=== PATIENT | female | born 1995 | race Caucasian/White ===

== ENCOUNTER 2020-05-22 12:52 | Outpatient (CLI) | payer OTHER, SELFPAY ==
[2020-05-22 14:33] LABS: Free T4 Free Thyroxine 0.89 ng/mL (0.78-2.19)
== END 2020-05-22 12:53 | disposition home or self-care (01) ==
PROVIDERS: PCP Internal Medicine; Visit Provider Internal Medicine Endocrinology, Diabetes & Metabolism
DX: E03.9 Hypothyroidism, unspecified (principal)
CPT/HCPCS: 36415; 84439; 84443

== ENCOUNTER 2020-07-15 14:28 | Outpatient (CLI) | payer OTHER, SELFPAY ==
[2020-07-15 15:32] LABS: Basophils Percent Auto 0.3 % (0.2-1.2); Eosinophils Absolute Auto 0.1 K/mm3 (0-0.3); Eosinophils Percent Auto 1.6 % (0-4.4); Hematocrit 47.8 % (37.0-47.0); Hemoglobin 16.1 g/dL (12.0-15.0); Immature Granulocyte Absolute 0.02 K/mm3 (0.00-0.031); Immature Granulocyte Percent A 0.2 % (0-0.5); Lymphocytes Absolute Auto 2.71 K/mm3 (0.9-3.2); Mean Corpuscular HGB Conc 33.7 g/dl (32-36); Mean Corpuscular Hemoglobin 31.2 pg (26-34); Mean Corpuscular Volume 92.6 fl (80-100); Monocytes Absolute Auto 0.6 K/mm3 (0.1-0.6); Monocytes Percent Auto 6.4 % (2.6-8.5); Neutrophils Absolute Auto 5.6 K/mm3 (1.3-6.7); Neutrophils Percent Auto 61.5 % (45.5-73.1); Platelet Count Result 287 k/mm3 (150-375); Red Blood Count 5.16 M/mm3 (4.2-5.4); Red Cell Distribution Width 11.9 % (11.5-14.5)
[2020-07-15 15:44] LABS: Alanine Aminotransferase 32 U/L (4-35); Albumin Level 4.5 g/dL (3.5-5.1); Alkaline Phosphatase 76 U/L (38-126); Anion Gap 7 mmol/L (8-16); Aspartate Amino Transferase 30 U/L (14-36); Bilirubin,Total 0.5 mg/dL (0.2-1.3); Blood Urea Nitrogen 15 mg/dL (7-17); Calcium 9.5 mg/dL (8.4-10.2); Carbon Dioxide 30 mmol/L (22-30); Chloride 104 mmol/L (98-107); Cholesterol 190 mg/dL (0-200); Estimated Glomerular Filt Rate 54; Glucose 87 mg/dL (65-105); HDL Direct 48 mg/dL; Sodium 141 mmol/L (137-145); Triglycerides 215 mg/dL (<150)
[2020-07-15 15:55] LABS: LDL Cholesterol Direct 112 mg/dL
[2020-07-15 16:49] LABS: Hemoglobin A1C 4.9 % (<5.7)
[2020-07-15 17:28] LABS: Vitamin D 25 Hydroxy 38.6 ng/mL
== END 2020-07-15 14:29 | disposition home or self-care (01) ==
PROVIDERS: PCP Internal Medicine; Visit Provider Nurse Practitioner Obstetrics & Gynecology
DX: Z00.00 Encounter for general adult medical examination without abnormal findings (principal)
CPT/HCPCS: 36415; 80053; 80061; 82306; 82607; 83036; 85025

== ENCOUNTER → 2020-07-21 13:45 | Outpatient (CLI) | payer OTHER, SELFPAY ==
--- NOTE | ~2020-07-21 | US_ITS ---
EXAMINATION: US right upper quadrant EXAM DATE: 07/21/2020 14:01 INDICATION: Right upper quadrant pain. TECHNIQUE: Multiple grayscale and Doppler images of the abdomen right upper quadrant were obtained (b y a technologist who performed the scan) and subsequently reviewed. There is no prior study for sophie higginbotham. FINDINGS: The pancreatic head and body are normal in appearance. The pancreatic tail is not visualized. The l iver has normal echogenicity and contour. There are no focal liver lesions identified. There is no evidence of intrahepatic biliary duct dilation. Portal venous flow was seen in the hepatopedal, nor mal direction and has normal Doppler waveform. No right-sided hydronephrosis. Common bile duct measures 3 mm, which is normal. The gallbladder wall is normal in thickness, with ex pected amount of distention. No sonographic evidence of pericholecystic fluid. There is no cholelit hiases. Technologist performing exam reports patient did not demonstrate sonographic [place]'s sign. Please note that this sign is less reliable in patients who have received pain medication. IMPRESSION: 1. Unremarkable abdominal ultrasound exam. Reviewed, dictated and finalized at location B. NG ASSOCIATE
== END ==
PROVIDERS: PCP Physician Assistant Medical; Visit Provider Physician Assistant Medical
DX: R10.11 Right upper quadrant pain (principal)
CPT/HCPCS: 76705

== ENCOUNTER 2020-08-06 11:53 | Outpatient (CLI) | payer OTHER, SELFPAY ==
[2020-08-06 13:19] LABS: Beta HCG Quantitative < 2.39 mIU/ML
[2020-08-12 07:27] LABS: FSH 6.8 mIU/mL (***); LH 10.6 mIU/mL (***); Prolactin 6.9 ng/mL (***)
== END 2020-08-06 11:54 | disposition home or self-care (01) ==
LOC: ANHLAB 11:55
PROVIDERS: PCP Physician Assistant Medical; Visit Provider Nurse Practitioner Obstetrics & Gynecology
DX: N91.1 Secondary amenorrhea (principal)
CPT/HCPCS: 36415; 83001; 83002; 84146; 84702

== ENCOUNTER 2020-08-25 08:11 | Outpatient (CLI) | payer OTHER, SELFPAY ==
--- NOTE | ~2020-08-25 | NM_ITS ---
EXAMINATION: NM hepatobiliary w pharm DATE: 08/25/2020 10:56 INDICATION: Right upper quadrant abdominal pain COMPARISON: None. TECHNIQUE: 5.1 mCi Tc-99m mebrofenin (Choletec) was administered intravenously. Scintigraphic images of the abdomen were obtained for one hour. 1.7 mcg sincalide (Kinevac) was administered by slow intr avenous infusion, and imaging was continued for 30 minutes. Gallbladder ejection fraction was calcula kia by the technologist. FINDINGS: There is normal clearance of radiotracer from the blood pool. There is homogeneous tracer uptake by t he liver. Activity progresses to the gallbladder and bowel. The gallbladder ejection fraction (GBEF) is 90% (normal 10-90%, but most patient with gallbladder dysfunction have GBEF < 35% which does over lap with the normal range). IMPRESSION: 1. Normal hepatobiliary scan Reviewed, dictated and finalized at location A. [employer]
== END 2020-08-25 08:12 | disposition home or self-care (01) ==
PROVIDERS: PCP Physician Assistant Medical; Visit Provider Internal Medicine
DX: R10.11 Right upper quadrant pain (principal)
CPT/HCPCS: 78227; A9537; J2805

== ENCOUNTER 2021-01-04 14:36 | Outpatient (CLI) | payer OTHER, SELFPAY ==
--- NOTE | ~2021-01-04 | US_ITS ---
EXAMINATION: US pelvic complete w TV EXAM DATE: 01/04/2021 15:23 INDICATION: Amenorrhea. TECHNIQUE: Pelvic transabdominal and transvaginal sonogram was performed. There are multiple graysca le and Doppler images available for interpretation. There is no prior study for comparison. FINDINGS: Uterus measures 7.5 x 4.0 x 4.8 cm, is retroverted and morphologically normal. Endometria l stripe measures 9 mm, within normal limits. There is no free pelvic fluid. Right adnexa: The ovary measures 3.6 x 2.2 x 2.2 cm and is morphologically normal. Ovarian vascular f low confirmed. Left adnexa: The ovary measures 3.9 x 2.2 x 2.6 cm and is morphologically normal. Ovarian vascular fl ow confirmed. IMPRESSION: 1. Unremarkable pelvic ultrasound exam. Reviewed, dictated and finalized at location A.
== END 2021-01-04 14:37 | disposition home or self-care (01) ==
PROVIDERS: PCP Physician Assistant Medical; Visit Provider Nurse Practitioner Obstetrics & Gynecology
DX: N91.1 Secondary amenorrhea (principal)
CPT/HCPCS: 76830; 76856

== ENCOUNTER 2022-03-03 18:35 | Emergency (ER) | payer OTHER, SELFPAY ==
[2022-03-03 18:57] VITALS: BP 114/71; PULSE 74; RESP 18; TEMP 37; O2SAT 100
--- NOTE | 2022-03-03 19:23 | ED.URI ---
HPI - URI/Sore Throat General Chief Complaint: Upper Respiratory Infection Stated Complaint: sorethroat Time Seen by Provider: 03/03/22 19:23 Source: patient, RN notes reviewed and old records reviewed Mode of arrival: ambulatory Limitations: no limitations History of Present Illness HPI Narrative: 26 year old female accompanied by children presents to [facility] with complaints of severe sore throat for 2 days, headache for 3 days, and fevers up to 104F for one day with no fevers for the past 24 hours,Patient reports that she has has been taking Tylenol and Ibuprofen for her symptoms. Patient states that her kids did have similar symptoms in the past weeks which lasted about 24 hours then resolved. patient has had COVID vaccinations and also flu shot MD elicited complaint: fever, sore throat and other (headache) Treatments prior to arrival: acetaminophen and ibuprofen Related Data Home Medications Medication Instructions Recorded Confirmed bupropion HCl 150 mg 24 hr tablet, 150 mg PO DIRECTED 03/03/22 03/03/22 extended release liothyronine 5 mcg tablet 5 mcg DIRECTED 03/03/22 03/03/22 thyroid (pork) 60 mg tablet 60 mg DIRECTED 03/03/22 03/03/22 ([place] Thyroid) Allergies Allergy/AdvReac Type Severity Reaction Status Date / Time No Known Allergies Allergy Unverified 07/02/16 12:54 Review of Systems Review of Systems: CONSTITUTIONAL: Positive episodes of fever, chills, or sweats. EYES: Denies visual changes, redness, or discharge. ENT: Denies rhinorrhea, congestion, positive sore throat, no otalgia. CARDIOVASCULAR: Denies chest pain, palpitations, or edema. RESPIRATORY: Denies cough or dyspnea. GASTROINTESTINAL: Denies abdominal pain, nausea, vomiting, or diarrhea. GENITOURINARY: Denies dysuria or hematuria. SKIN: Denies rash or itching. MUSCULOSKELETAL: Denies back pain, joint pain, or myalgia. NEUROLOGIC: Positive headache, no numbness, or weakness. PSYCHIATRIC: History of anxiety or depression. 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 There is no relevant family history pertinent to the presenting complaint Exam Narrative: GENERAL: Well-appearing, well-nourished, and in no acute distress. HEAD: Normocephalic, atraumatic. EYES: PERRLA and EOMI. ENT: Nares clear, no rhinorrhea or epistaxis. Mucous membranes moist.TM's normal with good light reflex, throat red no lesions or exudates, tonsils red. NECK: Supple. lymphadenopathy CHEST: Clear to auscultation. No respiratory distress.no cough or any dyspnea. SAO2 100% on room air HEART: Regular rate and rhythm. No murmur heard. Normal peripheral pulses. ABDOMEN: Soft, nontender, nondistended, normal active bowel sounds. EXTREMITIES: Normal range of motion. No edema. SKIN: Warm, dry, no rash. NEURO: No focal deficits. Alert and oriented x3. Course Course Level of Care: Express Care Visit Vital Signs Vital signs: Vital Signs Temperature 37.0 C 03/03/22 18:57 Pulse Rate 74 03/03/22 18:57 Respiratory Rate 18 03/03/22 18:57 Blood Pressure 114/71 03/03/22 18:57 Pulse Oximetry 100 03/03/22 18:57 Oxygen Delivery Room Air 03/03/22 18:57 Temperature 37.0 C 03/03/22 18:57 Pulse Rate 74 03/03/22 18:57 Respiratory Rate 18 03/03/22 18:57 Blood Pressure 114/71 03/03/22 18:57 Pulse Oxim
== END 2022-03-03 19:46 | disposition home or self-care (01) ==
PROVIDERS: Emergency Provider Registered Nurse; PCP Internal Medicine
DX: J06.9 Acute upper respiratory infection, unspecified (principal); J02.9 Acute pharyngitis, unspecified; Z20.822 Contact with and (suspected) exposure to COVID-19; E06.3 Autoimmune thyroiditis
CPT/HCPCS: 87081; 87426; 87880; 99213; C9803; G0463

== ENCOUNTER 2024-01-05 18:49 | Emergency (ER) | payer OTHER, SELFPAY ==
[2024-01-05 19:14] VITALS: BP 112/66; PULSE 89; RESP 18; TEMP 36.2; O2SAT 100
--- NOTE | 2024-01-05 19:53 | ED.FEMALEGU ---
HPI - Female Genitourinary General Chief complaint: Urogenital-Female Stated complaint: uti symptoms Time Seen by Provider: 01/05/24 19:53 Source: patient and RN notes reviewed Mode of arrival: ambulatory Limitations: no limitations History of Present Illness HPI Narrative: 28 y/o female presented for c/o urinary frequency, urgency, dysuria. Onset today. denies hematuria, nausea, vomiting, abdominal pain, flank pain, constipation, diarrhea, fevers or chills. LMP 2 weeks ago, no concern for or STD. Related Data Home Medications Medication Instructions Recorded Confirmed liothyronine 5 mcg tablet 5 mcg DIRECTED 03/03/22 01/05/24 thyroid (pork) 60 mg tablet 60 mg DIRECTED 03/03/22 01/05/24 ([place] Thyroid) Allergies Allergy/AdvReac Type Severity Reaction Status Date / Time No Known Allergies Allergy Verified 01/05/24 19:23 Review of Systems Review of Systems: CONSTITUTIONAL: Denies body aches, fever, chills, or sweats. CARDIOVASCULAR: Denies chest pain, palpitations, or edema. RESPIRATORY: Denies cough or dyspnea. GASTROINTESTINAL: Denies abdominal pain, nausea, vomiting, or diarrhea. GENITOURINARY: Reports dysuria, frequency, urgency, denies hematuria, flank pain SKIN: Denies rash, itching, or wounds. MUSCULOSKELETAL: Denies back pain or myalgia. [facility] Past Medical History Medical History Cleft lip and palate Lexis's disease Hypothyroidism Post depression Surgical History Surgical History Cleft lip and palate repaired as child History of repair of cleft lip Family History Family History Father Diabetes mellitus Hypertension Mother Depression Hypothyroidism Social History Social History Smoking status: Never smoker Alcohol intake: current Alcohol use details: social Substance use: never Substance use type: does not use Living arrangements: with family Occupation/Education: occupation Additional occupation/education comments: RN at [employer] Gender identity (if verbalized by the patient): Female Agree to blood products: Yes Comments At time of signature, I have reviewed and agree with nursing past medical, surgical, social and family history unless otherwise noted. Please see nursing chart for further information. There is no relevant family history pertinent to the presenting complaint Exam Narrative: GENERAL: Well-appearing and in no acute distress. HEAD: Normocephalic EYES: EOMI. . ENT: Mucous membranes pink and moist. NECK: Normal AROM. Supple. CHEST: No respiratory distress. Clear to auscultation. HEART: Regular rate and rhythm. ABDOMEN: Soft, nondistended, normal active bowel sounds. Mild suprapubic tenderness with palpation No CVA tenderness NEURO: No focal deficits. Alert and oriented x3. Gait steady. PSYCH: Normal affect. Course Course Emergency Course: Patient is aware of diagnosis, understands and agrees to treatment plan. Anticipatory guidance given. Patient agrees to follow-up as directed and is aware of reasons to seek care at the emergency department. Portions of this record may have been created with voice recognition software Level of Care: Express Care Visit Vital Signs Vital signs: Vital Signs Temperature 97.1 F L 01/05/24 19:14 Pulse Rate 89 01/05/24 19:14 Respiratory Rate 18 01/05/24 19:14 Blood Pressure 112/66 01/05/24 19:14 Pulse Oximetry 100 01/05/24 19:14 Oxygen Delivery Room Air 01/05/24 19:14 Temperature 97.1 F L 01/05/24 19:14 Pulse Rate 89 01/05/24 19:14 Respiratory Rate 18 01/05/24 19:14 Blood Pressure 112/66 01/05/24 19:14 Pulse Oximetry 100 01/05/24 19:14 Oxygen Delivery Room Air 01/05/24 19:14
== END 2024-01-05 20:01 | disposition home or self-care (01) ==
PROVIDERS: Emergency Provider Nurse Practitioner Family; PCP Physician Assistant Medical
DX: N39.0 Urinary tract infection, site not specified (principal); B96.20 Unspecified Escherichia coli [E. coli] as the cause of diseases classified elsewhere; E06.3 Autoimmune thyroiditis; E03.9 Hypothyroidism, unspecified
CPT/HCPCS: 81003; 87077; 87086; 87088; 87186; 99213; G0463